=== PATIENT | male | born 1995 | race Caucasian/White ===

== ENCOUNTER 2018-08-23 11:55 | Emergency (ER) | payer BC ==
[~2018-08-23] VITALS: Ht 180.3 cm; Wt 92.3 kg
[2018-08-23 11:59] VITALS: BP 147/91; TEMP 99.3
[2018-08-23 13:57] VITALS: PULSE 88
== END 2018-08-23 13:57 | disposition home or self-care (01) ==
LOC: COL.ER 11:55
DX: F17.210 Nicotine dependence, cigarettes, uncomplicated (principal); Z98.890 Other specified postprocedural states

== ENCOUNTER 2020-01-09 09:22 | Emergency (ER) | payer BC ==
[~2020-01-09] VITALS: Ht 177.8 cm; Wt 84.1 kg
[2020-01-09 09:36] VITALS: TEMP 97.6
[2020-01-09 10:13] LABS: BASO % 0.6 % (0.0-2.0); EOS # 0.1 (0.0-0.7); EOS % 1.7 % (0-4.0); GRAN # 4.3 (1.4-6.5); GRAN % 60.2 % (42.2-75.2); HEMATOCRIT 44.6 % (42.0-52.0); HEMOGLOBIN 15.6 g/dl (13.5-18.0); LYMPH # 2.1 (1.2-3.4); MEAN CELL VOLUME 84 fl (80.0-100.0); MEAN CORPUSCULAR HEMOGLOBIN 29 pg (27.0-31.0); MEAN CORPUSCULAR HGB CONC 35 g/dl (33.0-37.0); MONO # 0.6 (0.1-0.6); MONO % 8.1 % (1.7-9.3); PLATELET COUNT 238 K/mm3 (130-400); RED BLOOD COUNT 5.32 M/mm3 (4.20-5.60); REDCELL DISTRIBUTION WIDTH-CV 11.7 % (11.5-14.5)
[2020-01-09 10:19] LABS: ALANINE AMINOTRANSFERASE 23 U/L (4-49); ALBUMIN 4.9 gm/dL (3.5-5.0); ALKALINE PHOSPHATASE 59 U/L (50-136); ANION GAP 11 mmol/L (7-16); AST,SGOT 25 U/L (15-37); BILIRUBIN,TOTAL 0.7 mg/dL (0.0-1.0); BLOOD UREA NITROGEN 10 mg/dL (9-20); CALCIUM 9.7 mg/dL (8.4-10.2); CARBON DIOXIDE 26 mmol/L (22-30); CHLORIDE 99 mmol/L (98-107); CREATININE, serum 0.78 (0.66-1.25); GLUCOSE 115 mg/dL (74-106); LIPASE 61 U/L (23-300); POTASSIUM 4.1 mmol/L (3.4-5.0); SODIUM 136 mmol/L (137-145); TOTAL PROTEIN 8.4 gm/dL (6.4-8.2)
[2020-01-09 10:30] LABS: TROPONIN-I < 0.012 ng/mL (0.000-0.035)
[2020-01-09] MEDS ORDERED: FLEXERIL 1010 MG/TAB PO (12:19)
[2020-01-09 12:32] VITALS: BP 114/77; PULSE 99
== END 2020-01-09 12:31 | disposition home or self-care (01) ==
LOC: COL.ER 09:22
PROVIDERS: Emergency Medicine
DX: R07.89 Other chest pain (principal); F17.220 Nicotine dependence, chewing tobacco, uncomplicated
CPT/HCPCS: J2405; J7030; Q9967

== ENCOUNTER 2020-03-28 23:51 | Emergency (ER) | payer BC ==
[~2020-03-28] VITALS: Ht 177.8 cm; Wt 87.3 kg
[~2020-03-28 23:51] MED LIST: FLEXERIL 1010 MG/TAB PO
[2020-03-29 00:21] LABS: BASO # 0.1 (0.0-0.2); BASO % 0.4 % (0.0-2.0); EOS # 0.2 (0.0-0.7); EOS % 2.1 % (0-4.0); GRAN # 6.1 (1.4-6.5); GRAN % 54.2 % (42.2-75.2); HEMATOCRIT 42.5 % (42.0-52.0); LYMPH % 35.6 % (20.0-51.0); MEAN CELL VOLUME 84 fl (80.0-100.0); MEAN CORPUSCULAR HEMOGLOBIN 30 pg (27.0-31.0); MEAN CORPUSCULAR HGB CONC 35 g/dl (33.0-37.0); MEAN PLATELET VOLUME 9.8 fl (7.4-10.4); MONO # 0.8 (0.1-0.6); MONO % 7.4 % (1.7-9.3); PLATELET COUNT 242 K/mm3 (130-400); RED BLOOD COUNT 5.09 M/mm3 (4.20-5.60); REDCELL DISTRIBUTION WIDTH-CV 11.2 % (11.5-14.5)
[2020-03-29 01:20] LABS: ALANINE AMINOTRANSFERASE 24 U/L (4-49); ALBUMIN 4.8 gm/dL (3.5-5.0); ALKALINE PHOSPHATASE 62 U/L (50-136); ANION GAP 9 mmol/L (7-16); AST,SGOT 30 U/L (15-37); BILIRUBIN,TOTAL 0.9 mg/dL (0.0-1.0); BLOOD UREA NITROGEN 10 mg/dL (9-20); CALCIUM 9.7 mg/dL (8.4-10.2); CARBON DIOXIDE 27 mmol/L (22-30); CHLORIDE 100 mmol/L (98-107); CREATININE, serum 0.85 (0.66-1.25); GLUCOSE 105 mg/dL (74-106); LIPASE 102 U/L (23-300); POTASSIUM 3.5 mmol/L (3.4-5.0); SODIUM 136 mmol/L (137-145); TOTAL PROTEIN 8.3 gm/dL (6.4-8.2)
[2020-03-29 01:32] LABS: TROPONIN-I < 0.012 ng/mL (0.000-0.035)
[2020-03-29] MEDS ORDERED: FLEXERIL 1010 MG/TAB PO (01:57)
[2020-03-29] MEDS ORDERED: CARAFATE 1GM1 G PO (01:57)
[2020-03-29 01:59] VITALS: BP 124/74; PULSE 71; TEMP 98
== END 2020-03-29 02:05 | disposition home or self-care (01) ==
LOC: COL.ER 23:51
PROVIDERS: Emergency Medicine
DX: K21.9 Gastro-esophageal reflux disease without esophagitis (principal); R07.89 Other chest pain; M54.9 Dorsalgia, unspecified
CPT/HCPCS: J1885

== ENCOUNTER 2020-05-03 09:33 | Emergency (ER) | payer BC ==
[~2020-05-03] VITALS: Ht 177.8 cm; Wt 86.8 kg
[~2020-05-03 09:33] MED LIST changes: +CARAFATE 1GM1 G PO
[2020-05-03 09:41] VITALS: TEMP 98.4
[2020-05-03] MEDS ORDERED: PROTONIX20 MG PO (10:03)
[2020-05-03 10:22] LABS: BASO % 0.5 % (0.0-2.0); EOS # 0.1 (0.0-0.7); EOS % 1.9 % (0-4.0); GRAN # 3.8 (1.4-6.5); GRAN % 60.8 % (42.2-75.2); HEMATOCRIT 42.2 % (42.0-52.0); LYMPH # 1.9 (1.2-3.4); LYMPH % 30.2 % (20.0-51.0); MEAN CELL VOLUME 84 fl (80.0-100.0); MEAN CORPUSCULAR HEMOGLOBIN 30 pg (27.0-31.0); MEAN CORPUSCULAR HGB CONC 36 g/dl (33.0-37.0); MEAN PLATELET VOLUME 10.1 fl (7.4-10.4); MONO # 0.4 (0.1-0.6); MONO % 6.1 % (1.7-9.3); PLATELET COUNT 191 K/mm3 (130-400); RED BLOOD COUNT 5.04 M/mm3 (4.20-5.60); REDCELL DISTRIBUTION WIDTH-CV 11.7 % (11.5-14.5)
[2020-05-03 10:48] LABS: ALANINE AMINOTRANSFERASE 23 U/L (4-49); ALBUMIN 4.7 gm/dL (3.5-5.0); ALKALINE PHOSPHATASE 55 U/L (50-136); ANION GAP 9 mmol/L (7-16); AST,SGOT 24 U/L (15-37); BILIRUBIN,TOTAL 0.6 mg/dL (0.0-1.0); BLOOD UREA NITROGEN 12 mg/dL (9-20); CALCIUM 9.4 mg/dL (8.4-10.2); CARBON DIOXIDE 27 mmol/L (22-30); CHLORIDE 102 mmol/L (98-107); CREATININE, serum 0.81 (0.66-1.25); GLUCOSE 165 mg/dL (74-106); LIPASE 76 U/L (23-300); SODIUM 138 mmol/L (137-145); TOTAL PROTEIN 7.8 gm/dL (6.4-8.2)
[2020-05-03 10:52] LABS: C-REACTIVE PROTEIN < 0.5 mg/dL (0.0-0.9)
[2020-05-03 11:02] LABS: TROPONIN-I < 0.012 ng/mL (0.000-0.035)
[2020-05-03] MEDS ORDERED: ATARAX50 MG PO (12:07)
[2020-05-03 12:29] VITALS: BP 100/62; PULSE 83
== END 2020-05-03 12:30 | disposition home or self-care (01) ==
LOC: COL.ER 09:33
PROVIDERS: Physician Assistant
DX: K21.9 Gastro-esophageal reflux disease without esophagitis (principal); F41.9 Anxiety disorder, unspecified; Z87.891 Personal history of nicotine dependence; Z79.1 Long term (current) use of non-steroidal anti-inflammatories (NSAID); Z79.810 Long term (current) use of selective estrogen receptor modulators (SERMs)
CPT/HCPCS: J2060; J2270; J2405; J7030

== ENCOUNTER → 2020-05-20 | Outpatient (CLI) | payer BC ==
[~2020-05-20] MED LIST changes: +ATARAX50 MG PO; +PROTONIX20 MG PO
== END ==
LOC: COL.RAD 07:48
DX: K21.9 Gastro-esophageal reflux disease without esophagitis (principal); R68.81 Early satiety
CPT/HCPCS: A9541

== ENCOUNTER 2020-10-09 14:59 | Emergency (ER) | payer BC ==
[~2020-10-09] VITALS: Ht 177.8 cm; Wt 90.9 kg
[2020-10-09 15:04] VITALS: TEMP 98.1
[2020-10-09 16:18] LABS: BASO # 0.1 (0.0-0.2); BASO % 0.6 % (0.0-2.0); EOS # 0.2 (0.0-0.7); EOS % 1.9 % (0-4.0); GRAN # 4.6 (1.4-6.5); GRAN % 57.2 % (42.2-75.2); HEMATOCRIT 45.1 % (42.0-52.0); HEMOGLOBIN 15.8 g/dl (13.5-18.0); LYMPH # 2.7 (1.2-3.4); LYMPH % 33.5 % (20.0-51.0); MEAN CELL VOLUME 84 fl (80.0-100.0); MEAN CORPUSCULAR HEMOGLOBIN 29 pg (27.0-31.0); MEAN CORPUSCULAR HGB CONC 35 g/dl (33.0-37.0); MEAN PLATELET VOLUME 10.3 fl (7.4-10.4); MONO # 0.5 (0.1-0.6); MONO % 6.6 % (1.7-9.3); PLATELET COUNT 251 K/mm3 (130-400); RED BLOOD COUNT 5.39 M/mm3 (4.20-5.60); REDCELL DISTRIBUTION WIDTH-CV 11.6 % (11.5-14.5)
[2020-10-09 16:27] LABS: ALANINE AMINOTRANSFERASE 38 U/L (4-49); ALBUMIN 4.7 gm/dL (3.5-5.0); ALKALINE PHOSPHATASE 56 U/L (50-136); ANION GAP 10 mmol/L (7-16); AST,SGOT 25 U/L (15-37); BILIRUBIN,TOTAL 0.4 mg/dL (0.0-1.0); BLOOD UREA NITROGEN 12 mg/dL (9-20); CALCIUM 9.3 mg/dL (8.4-10.2); CARBON DIOXIDE 26 mmol/L (22-30); CHLORIDE 102 mmol/L (98-107); CREATININE, serum 0.88 (0.66-1.25); GLUCOSE 110 mg/dL (74-106); POTASSIUM 4.2 mmol/L (3.4-5.0); SODIUM 138 mmol/L (137-145); TOTAL PROTEIN 7.8 gm/dL (6.4-8.2)
[2020-10-09 16:40] LABS: TROPONIN-I < 0.012 ng/mL (0.000-0.035)
[2020-10-09 16:56] VITALS: BP 113/82; PULSE 80
== END 2020-10-09 17:00 | disposition home or self-care (01) ==
LOC: COL.ER 14:59
PROVIDERS: Nurse Practitioner
DX: R07.9 Chest pain, unspecified (principal); Z87.891 Personal history of nicotine dependence; Z86.16 Personal history of COVID-19
CPT/HCPCS: J1885